=== PATIENT | female | born 1975 | race Caucasian/White ===

== ENCOUNTER 2020-03-31 07:21 | Emergency (ER) | payer BC, MEDICAID, OTHER ==
[2020-03-31] MEDS ORDERED: Lactated Ringers 1,000 ML IV ONE (07:34)
[2020-03-31] MEDS ORDERED: Prochlorperazine 10 MG/2 ML SDV IVPUSH ONE (07:35)
[2020-03-31] MEDS ORDERED: diphenhydrAMINE 50 MG/ML SDV IVPUSH ONE (07:35)
[2020-03-31] MEDS ORDERED: Loperamide 2 MG Cap PO ONE (07:52)
--- NOTE | 2020-03-31 07:57 | EDM.PDOC ---
ED HPI GENERAL MEDICAL PROBLEM - General Chief Complaint: Gastrointestinal Problem Stated Complaint: NASEAU, VOMITTING FOR 3 DAYS Time Seen by Provider: 03/31/20 07:40 Source of Information: Reports: Patient, RN. Denies: Old Records History Limitations: Reports: Other (no old records) - History of Present Illness INITIAL COMMENTS - FREE TEXT/NARRATIVE: 44 yo female visiting from [place] presents with 3 days of nausea, vomiting, and diarrhea. Had a baby about 2 weeks ago. No fever. No blood in her emesis or stool. Her and child are not ill. No self tx. Is dizzy with standing. Denies knowledge of a pHx of bradycardia. Is not breast feeding. Onset: Gradual Onset Date: 03/28/20 Duration: Day(s): (3), Constant Location: Reports: Abdomen Quality: Reports: Other (no pain) Severity: Moderate Improves with: Reports: None Worsens with: Reports: None Context: Reports: Other (See HPI) Associated Symptoms: Reports: Loss of Appetite, Nausea/Vomiting. 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 Denies: Abdominal Pain, Black Stool, Bloody Stool, Constipation, Distension, Hematemesis, Hematochezia, Melena : Reports: No Symptoms Musculoskeletal: Reports: No Symptoms Skin: Reports: No Symptoms Neurological: Reports: No Symptoms Psychiatric: Reports: Anxiety (hx of anxiety), Depression (has a hx of depression) ED EXAM, GI/ABD - Physical Exam Exam: See Below Exam Limited By: No Limitations General Appearance: Alert, WD/WN, No Apparent Distress Eyes: Bilateral: Normal Appearance Ears: Normal External Exam, Normal Canal, Hearing Grossly Normal, Normal TMs Nose: Normal Inspection, No Blood Throat/Mouth: Normal Inspection, Normal Lips, Normal Oropharynx, Normal Voice, No Airway Compromise Head: Atraumatic, Normocephalic Neck: Normal Inspection Respiratory/Chest: No Respiratory Distress, Lungs Clear, Normal Breath Sounds, No Accessory Muscle Use Cardiovascular: Regular Rate, Rhythm, No Edema GI/Abdominal Exam: Normal Bowel Sounds, Soft, Non-Tender, No Distention Back Exam: Normal Inspection. No: CVA Tenderness (R), CVA Tenderness (L) Extremities: Normal Inspection, Normal Range of Motion, Non-Tender, No Pedal Edema Neurological: Alert, Oriented, CN II-XII Intact, Normal Cognition, No Motor/Sensory Deficits Psychiatric: Normal Affect, Normal Mood Skin Exam: Warm, Dry, Intact, Normal Color, No Rash #1 Interpretation EKG Date: 03/31/20 Time: 08:25 Rhythm: NSR Rate (Beats/Min): 48 [place]: Normal P-Wave: Present QRS: Normal ST-T: Elevated (slight ST elevation in multiple leads.) QT: Normal Comparison: NA - No Prior EKG Course - Vital Signs Last Recorded V/S: Last Vital Signs Temp 34.9 C L 03/31/20 07:38 Pulse 44 L 03/31/20 07:38 Resp 14 03/31/20 07:38 BP 144/85 H 03/31/20 07:38 Pulse Ox 94 L 03/31/20 07:38 - Orders/Labs/Meds Orders: Active Orders 24 hr Category Date Time Status EKG Documentation Completion [RC] ASDIRECTED Care 03/31/20 07:51 Active TROPONIN I [CHEM] Stat Lab 03/31/20 08:33 Ordered EKG 12 Lead [EK] Routine Ther 03/31/20 07:51 Ordered Labs: Laboratory Tests 03/31/20 Range/Units 07:54 Sodium 141 (140-148) mmol/L Potassium 3.8 (3.6-5.2) mmol/L Chloride 107 (100-108) mmol/L Carbon Dioxide 25 (21-32) mmol/L Anion Gap 9.5 (5.0-14.0) mmol/L BUN 11 (7-18) mg/dL Creatinine 0.7 (0.6-1.0) mg/dL Est Cr Clr Drug Dosing 101.81 mL/min Estimated GFR (MDRD) > 60 (>60) Glucose 92 (74-106) mg/dL Calcium 8.2 L (8.5-10.1) mg/dL Meds: Medications Discontinued Medications Generic Name Dose Route Start Last Admin Trade Name Freq PRN Reason Stop Dose Admin Diphenhydramine HCl 25 mg 03/31/20 07:35 03/31/20 08:07 Benadryl IVPUSH 03/31/20 07:36 25 mg ONETIME ONE Administration Lactated Ringer's 1,000 mls @ 1,000 mls/hr 03/31/20 07:34 03/31/20 07:58 Ringers, Lactated IV 03/31/20 08:33 1,000 mls/hr BOLUS ONE Administration Loperamide HCl 4 mg 03/31/20 07:52 03/31/20 08:08 Imodium PO 03/31/20 07:53 4 mg ONETIME ONE Administration Prochlorperazine Edisylate 10 mg 03/31/20 07:35 03/31/20 08:04 Compazine IVPUSH 03/31/20 07:36 10 mg ONETIME ONE Administration Departure - Departure Time of Disposition: 09:00 Disposition: Home, Self-Care 01 Condition: Fair Clinical Impression: Nausea vomiting and diarrhea - Discharge Information *PRESCRIPTION DRUG MONITORING PROGRAM REVIEWED*: Not Applicable *COPY OF PRESCRIPTION DRUG MONITORING REPORT IN PATIENT FARZANA: Not Applicable Instructions: Viral Gastroenteritis, Adult, [id number] Referrals: PCP,None [Primary Care Provider] - Forms: ED Department Discharge Additional Instructions: Use loperamide per package instructions as needed for diarrhea control. Use Compazine suppositories as needed for nausea control. Clear liquids only until no vomiting for 12 hrs, then advance diet slowly as tolerated. Recheck if worse or not improving. Sepsis Event Note (ED) - Evaluation Sepsis Screening Result: No Definite Risk - Focused Exam Vital Signs: Vital Signs Temp Pulse Resp BP Pulse Ox 03/31/20 07:38 34.9 C L 44 L 14 144/85 H 94 L - My Orders Last 24 Hours: My Active Orders 03/31/20 07:51 EKG Documentation Completion [RC] ASDIRECTED EKG 12 Lead [EK] Routine 03/31/20 08:33 TROPONIN I [CHEM] Stat - Assessment/Plan Last 24 Hours: My Active Orders 03/31/20 07:51 EKG Documentation Completion [RC] ASDIRECTED EKG 12 Lead [EK] Routine 03/31/20 08:33 TROPONIN I [CHEM] Stat
== END 2020-03-31 09:12 | disposition home or self-care (01) ==
LOC: JP.ED 07:21
DX: O90.89 Other complications of the puerperium, not elsewhere classified (principal); R11.2 Nausea with vomiting, unspecified; R19.7 Diarrhea, unspecified; Z72.0 Tobacco use; Z79.899 Other long term (current) drug therapy
CPT/HCPCS: 36415; 80048; 84484; 93005; 96374; 96375; 99284; A9270; J0780; J1200; J7120; 93010; 99283